=== PATIENT | female | born 1955 ===

== ENCOUNTER 2018-11-16 04:08 | Emergency (ER) | payer MEDICARE, MEDICAID ==
[2018-11-16 04:09] VITALS: BMI 38.2
--- NOTE | 2018-11-16 04:13 | C.PDOC ---
History Of Present Illness Patient presents to the ER with a complaint of fever, chills, nausea since 2199 that has worsened. She is currently speaking in complete sentences and able to tolerate PO. Denies chest pain or SOB. Time Seen by Provider: 11/16/18 04:12 History Per: Patient History/Exam Limitations: no limitations Onset/Duration Of Symptoms: Hrs Current Symptoms Are (Timing): Worse Severity: Moderate Pain Scale Rating Of: 4 Recent travel outside of the [place]: No Past Medical History Reviewed: Historical Data, Nursing Documentation, Vital Signs - Medical History PMH: Gastritis, HTN Denies: Chronic Kidney Disease Surgical History: Appendectomy, Cholecystectomy - [facility] Procedures LAPAROSCOPIC CHOLECYSTECTOMY (05/30/13) Family History: States: No Known Family Hx - Social History Hx Tobacco Use: No Hx Alcohol Use: No Hx Substance Use: No - Immunization History Hx Tetanus Toxoid Vaccination: No Hx Influenza Vaccination: Yes Hx Pneumococcal Vaccination: No Review Of Systems Constitutional: Positive for: Fever, Chills Cardiovascular: Negative for: Chest Pain, Palpitations Respiratory: Negative for: Cough, Shortness of Breath Gastrointestinal: Positive for: Nausea. Negative for: Vomiting Neurological: Negative for: Weakness, Numbness Physical Exam - Physical Exam Appears: Non-toxic Skin: Warm, Dry Head: Normacephalic Eye(s): bilateral: Normal Inspection Ear(s): Bilateral: Normal Nose: No Discharge Oral Mucosa: Moist Throat: No Erythema, No Exudate Neck: Trachea Midline, Supple Chest: Symmetrical, No Tenderness Cardiovascular: Rhythm Regular Respiratory: No Rales, No Rhonchi, No Wheezing Gastrointestinal/Abdominal: Soft, No Tenderness Back: No CVA Tenderness Neurological/Psych: Oriented x3 ED Course And Treatment - Laboratory Results Result Diagrams: 11/16/18 04:44 11/16/18 04:44 ECG: Interpreted By Nd ECG Rhythm: Sinus Rhythm (124), L BBB, Nonspecific Changes (unchanged from 09/09/15) O2 Sat by Pulse Oximetry: 100 Pulse Ox Interpretation: Normal Progress Note: Blood work, EKG, CXR, urinalysis, and flu swab ordered. IV fluids and tylenol administered. Reevaluation Time: 06:20 Reassessment Condition: Improved Medical Decision Making Medical Decision Making: Upon provider reevaluation patient is feeling better, is medically stable, and requires no further treatment in the ED at this time. Patient will be discharged home with Rx for macrobid . Counseling was provided and all questions were answered regarding diagnosis and need for follow up with the referred clinic. There is agreement to discharge plan. Return if symptoms persist or worsen. Disposition Counseled Patient/Family Regarding: Studies Performed, Diagnosis, Need For Followup, Rx Given - Disposition Referrals: [facility] [Outside] [facility] [Outside] Disposition: HOME/ ROUTINE Disposition Time: 04:12 Condition: FAIR Additional Instructions: Thank you for letting us take care of you today. Your provider was Dr. Ferrara. You were treated for urinary tract infection . The emergency medical care you received today was directed at your acute symptoms. If you were prescribed any medication, please fill it and take as directed. It may take several days for your symptoms to resolve. Return to the Emergency Department if your symptoms worsen, do not improve, or if you have any other problems. Please contact your doctor or call one of the physicians/clinics you have been referred to that are listed on the Patient Visit Information form that is included in your discharge packet. Bring any paperwork you were given at [facility] with you along with any medications you are taking to your follow up visit. Our treatment cannot replace ongoing medical care by a primary care provider (PCP) outside of the emergency department. Prescriptions: Nitrofurantoin Macrocrystals [Macrobid] 1 cap PO BID #14 cap Instructions: Urinary Tract Infection, Adult (DC) - Clinical Impression Clinical Impression: Fever, UTI (urinary tract infection) - Scribe Statement The provider has reviewed the documentation as recorded by the Scribe Jacoby West All medical record entries made by the Scribe were at my direction and personally dictated by me. I have reviewed the chart and agree that the record accurately reflects my personal performance of the history, physical exam, medical decision making, and the department course for this patient. I have also personally directed, reviewed, and agree with the discharge instructions and disposition.
[2018-11-16] MEDS ORDERED: Sodium Chloride 0.9% 1,000 ML IV ONE ×2 (04:21→05:34)
[2018-11-16 04:53] LABS: BASO # 0.1 K/uL (0.0-0.2); BASO % 0.5 % (0.0-2.0); EOS # 0.1 K/uL (0.0-0.7); EOS % 0.5 % (0.0-4.0); HEMOGLOBIN 12.8 g/dL (11.0-16.0); LYMPH # 0.8 K/uL (1.0-4.3); LYMPH % 6.6 % (20.0-40.0); MEAN CELL VOLUME 85.6 fL (81.0-99.0); MEAN CORPUSCULAR HEMOGLOBIN 28.7 pg (27.0-31.0); MEAN CORPUSCULAR HGB CONC 33.6 g/dL (33.0-37.0); MONO # 0.7 K/uL (0.0-0.8); MONO % 5.4 % (0.0-10.0); NEUT # 11.1 K/uL (1.8-7.0); PLATELET COUNT 197 K/uL (130-400); RBC 4.46 Mil/uL (3.80-5.20); RED CELL DISTRIBUTION WIDTH 12.8 % (11.5-14.5); WHITE BLOOD COUNT 12.7 K/uL (4.8-10.8)
[2018-11-16] MEDS ORDERED: Sodium Chloride 0.9% 1,000 ML ONE ×2 (04:53→05:41)
[2018-11-16 04:54] LABS: SQUAMOUS EPITHIAL 1 /hpf (0-5); URINE BACTERIA OCC (<OCC); URINE BILIRUBIN NEGATIVE (NEGATIVE); URINE BLOOD 2+ (NEGATIVE); URINE CLARITY Hazy (Clear); URINE COLOR Yellow (YELLOW); URINE GLUCOSE (UA) NORMAL (Normal); URINE LEUKOCYTE ESTERASE 2+ Leu/uL (Negative); URINE PROTEIN NEGATIVE (NEGATIVE); URINE UROBILINOGEN NORMAL mg/dL (0.2-1.0)
[2018-11-16 04:56] LABS: PROTHROMBIN TIME 11.4 SECONDS (9.7-12.2)
[2018-11-16] MEDS ORDERED: Piperacillin/Tazobact 3.375 gm 100 ML IVPB STA (04:58)
[2018-11-16 05:03] VITALS: RESP 16
[2018-11-16] MEDS ORDERED: Piperacillin/Tazobact 3.375 gm 100 ML IVPB ONE (05:07)
[2018-11-16 05:12] LABS: VENOUS BLOOD GAS BASE EXCESS 3.9 mmol/L (0.0-2.0); VENOUS BLOOD GAS PCO2 38 mmHg (40-60); VENOUS BLOOD GAS PO2 49 mm/Hg (30-55); VENOUS BLOOD PH 7.47 (7.32-7.43)
[2018-11-16 05:46] LABS: ALB/GLOB RATIO 1.6 (1.0-2.1); ALBUMIN 4.7 g/dL (3.5-5.0); ALT/SGPT 32 U/L (9-52); AST/SGOT 34 U/L (14-36); BLOOD UREA NITROGEN 18 mg/dL (7-17); CALCIUM 9.4 mg/dl (8.6-10.4); GFR NON-AFRICAN AMERICAN > 60
[2018-11-16 06:14] VITALS: BP 130/63; PULSE 93; TEMP 99.4
[2018-11-16 06:23] VITALS: O2SAT 100
[2018-11-16 08:05] LABS: EOSINOPHIL 1 % (0-4); LYMPHOCYTE 7 % (20-40); MONOCYTE 6 % (0-10); NEUTROPHIL 86 % (50-75); PLATELET ESTIMATE NORMAL (NORMAL); TOTAL CELLS COUNTED 100
--- NOTE | 2018-11-16 10:22 | RAD ---
HISTORY: SOB COMPARISON: Chest x-ray performed 03/08/15 TECHNIQUE: Chest, one view. FINDINGS: LUNGS: Right hilar prominence. Mild left basilar atelectasis. Hypoinflation. Please note that chest x-ray has limited sensitivity for the detection of pulmonary masses. PLEURA: No significant pleural effusion identified. No definite pneumothorax . CARDIOVASCULAR: Heart size appears top normal. No significant atherosclerotic calcification present. OSSEOUS STRUCTURES: Degenerative changes. VISUALIZED UPPER ABDOMEN: Unremarkable. OTHER FINDINGS: None. IMPRESSION: Right hilar prominence. Mild left basilar atelectasis. Hypoinflation.
--- NOTE | 2018-11-17 10:55 | CARD ---
APPROVED REPORT Date of service: 11/16/2018 EKG Measurement Heart [id number] <Conclusion> Sinus tachycardia Left bundle branch block Abnormal ECG
== END 2018-11-16 07:00 | disposition home or self-care (01) ==
LOC: C.ER 04:08
DX: N39.0 Urinary tract infection, site not specified (principal); R50.9 Fever, unspecified
CPT/HCPCS: 72HRC; 87181

== ENCOUNTER 2018-11-16 22:03 | Inpatient (IN) | payer MEDICARE, MEDICAID ==
[2018-11-16 22:03] VITALS: BMI 38.2
[2018-11-16] MEDS ORDERED: Sodium Chloride 0.9% 1,000 ML IV ONE (22:42)
[2018-11-16] MEDS ORDERED: Ciprofloxacin 400mg/200ml D5W 400 MG/200 ML BAG IVPB STA (22:49)
--- NOTE | 2018-11-16 23:01 | C.PDOC ---
Chief Complaint (Nursing): Female Genitourinary Past Medical History Vital Signs: Last Vital Signs Temp 98.9 F 11/16/18 22:23 Pulse 112 H 11/16/18 22:23 Resp 18 11/16/18 22:23 BP 152/82 H 11/16/18 22:23 Pulse Ox 96 11/16/18 22:23 - Medical History PMH: Gastritis, HTN Denies: Chronic Kidney Disease Surgical History: Appendectomy, Cholecystectomy - [facility] Procedures LAPAROSCOPIC CHOLECYSTECTOMY (05/30/13) Family History: States: Unknown Family Hx - Social History Hx Tobacco Use: No Hx Alcohol Use: No Hx Substance Use: No - Immunization History Hx Tetanus Toxoid Vaccination: No Hx Influenza Vaccination: Yes Hx Pneumococcal Vaccination: No ED Course And Treatment O2 Sat by Pulse Oximetry: 96 Disposition Discussed With DrMiguel: Edouard Rodríguez Jr. Doctor Will See Patient In The: Hospital Counseled Patient/Family Regarding: Diagnosis - Disposition Disposition: HOME/ ROUTINE Disposition Time: 22:59 Condition: STABLE Forms: [employer] [facility] ([place]) - POA Present On Arrival: None - Clinical Impression Clinical Impression: UTI (urinary tract infection), Bacteremia
[2018-11-16 23:04] LABS: SQUAMOUS EPITHIAL 1 /hpf (0-5); URINE BACTERIA OCC (<OCC); URINE BILIRUBIN NEGATIVE (NEGATIVE); URINE CLARITY Clear (Clear); URINE COLOR Straw (YELLOW); URINE GLUCOSE (UA) NORMAL (Normal); URINE PROTEIN NEGATIVE (NEGATIVE); URINE UROBILINOGEN NORMAL mg/dL (0.2-1.0)
[2018-11-16 23:05] LABS: URINE BLOOD TRACE (NEGATIVE); URINE LEUKOCYTE ESTERASE 1+ Leu/uL (Negative)
--- NOTE | 2018-11-16 23:08 | C.PDOC ---
History Of Present Illness 63 year old female was seen last night for not feeling well and fever, she had blood cultures done which were positive for bacteria. Patient reports feeling slightly better since yesterday. Denies pain. Chief Complaint (Nursing): Female Genitourinary History Per: Patient History/Exam Limitations: no limitations Onset/Duration Of Symptoms: Hrs Current Symptoms Are (Timing): Still Present Recent travel outside of the [place]: No Past Medical History Reviewed: Historical Data, Nursing Documentation, Vital Signs Vital Signs: Last Vital Signs Temp 98.9 F 11/16/18 22:23 Pulse 112 H 11/16/18 22:23 Resp 18 11/16/18 22:23 BP 152/82 H 11/16/18 22:23 Pulse Ox 96 11/16/18 22:23 - Medical History PMH: Gastritis, HTN Denies: Chronic Kidney Disease Surgical History: Appendectomy, Cholecystectomy - [facility] Procedures LAPAROSCOPIC CHOLECYSTECTOMY (05/30/13) Family History: States: Unknown Family Hx - Social History Hx Tobacco Use: No Hx Alcohol Use: No Hx Substance Use: No - Immunization History Hx Tetanus Toxoid Vaccination: No Hx Influenza Vaccination: Yes Hx Pneumococcal Vaccination: No Review Of Systems Constitutional: Negative for: Fever, Chills Cardiovascular: Negative for: Chest Pain, Palpitations Respiratory: Negative for: Cough, Shortness of Breath Gastrointestinal: Negative for: Nausea, Vomiting Neurological: Negative for: Weakness, Numbness Physical Exam - Physical Exam Appears: Non-toxic Skin: Normal Color, Warm, Dry Head: Atraumatic, Normacephalic Eye(s): bilateral: Normal Inspection Oral Mucosa: Moist Neck: Normal, Supple Chest: Symmetrical, No Tenderness Cardiovascular: Rhythm Regular Respiratory: Normal Breath Sounds, No Rales, No Rhonchi, No Wheezing Gastrointestinal/Abdominal: Soft, No Tenderness Back: No CVA Tenderness Neurological/Psych: Oriented x3, Normal Speech ED Course And Treatment - Laboratory Results Result Diagrams: 11/16/18 23:34 11/16/18 23:34 O2 Sat by Pulse Oximetry: 96 (Room air) Pulse Ox Interpretation: Normal Progress Note: Blood work and urinalysis ordered. Cipro and IV fluids administered. Disposition Discussed With DrMiguel: Edouard Rodríguez Jr. - Disposition Disposition: HOME/ ROUTINE Disposition Time: 22:50 Condition: STABLE - Clinical Impression Clinical Impression: UTI (urinary tract infection), Bacteremia - Scribe Statement The provider has reviewed the documentation as recorded by the Scribe Jacoby West All medical record entries made by the Scribe were at my direction and personally dictated by me. I have reviewed the chart and agree that the record accurately reflects my personal performance of the history, physical exam, medical decision making, and the department course for this patient. I have also personally directed, reviewed, and agree with the discharge instructions and disposition.
[2018-11-16] MEDS ORDERED: Ciprofloxacin 400mg/200ml D5W 400 MG/200 ML BAG IVPB ONE (23:20)
[2018-11-16] MEDS ORDERED: Sodium Chloride 0.9% 1,000 ML ONE (23:20)
[2018-11-16 23:39] LABS: BASO % 0.6 % (0.0-2.0); EOS % 0.3 % (0.0-4.0); HEMOGLOBIN 12.5 g/dL (11.0-16.0); LYMPH % 15.4 % (20.0-40.0); MEAN CELL VOLUME 86.8 fL (81.0-99.0); MEAN CORPUSCULAR HEMOGLOBIN 29.4 pg (27.0-31.0); MEAN CORPUSCULAR HGB CONC 33.8 g/dL (33.0-37.0); MEAN PLATELET VOLUME 9.1 fL (7.2-11.7); MONO # 0.5 K/uL (0.0-0.8); MONO % 7.1 % (0.0-10.0); NEUT # 5.1 K/uL (1.8-7.0); NEUT % 76.6 % (50.0-75.0); NRBC % 0.1 % (0.0-2.0); RBC 4.26 Mil/uL (3.80-5.20); RED CELL DISTRIBUTION WIDTH 13.4 % (11.5-14.5); WHITE BLOOD COUNT 6.6 K/uL (4.8-10.8)
[2018-11-16 23:57] LABS: ALB/GLOB RATIO 1.5 (1.0-2.1); ALBUMIN 4.2 g/dL (3.5-5.0); ALT/SGPT 57 U/L (9-52); AST/SGOT 63 U/L (14-36); BLOOD UREA NITROGEN 14 mg/dL (7-17); CALCIUM 9.2 mg/dl (8.6-10.4); GFR NON-AFRICAN AMERICAN > 60
--- NOTE | 2018-11-16 23:58 | CP.PCM.HP ---
History of Present Illness - History of Present Illness History of Present Illness: History and physical for Dr. Rodríguez's service CC "left flank pain, chills" HPI: Patient is a 63 year old female with history of hypertension, GERD, sleep apnea who initially presented earlier today for complaints of chills, and inter mittent left flank pain rated 7/10 that started suddenly at 11:30pm last night. She states her symptoms of chills and left flank pain woke her up from her sleep. She continued to have persistent discomfort until 3am this morning, when patient came in to the ED. She admits she has had 3 day history of dark urine however denies any pain or burning with urination. She states she has had urinary infections before, but she has never experienced these symptoms with a UTI before. She also states she experienced a headache rated 10/10 when her symptoms started, currently states her headache is a 7/10. While she was in the ED yesterday, she states her left flank pain improved with IV fluids and pain medication. She was prescribed Macrobid, which she took this morning. She states she was called back by the ED to return after blood culture revealed Gram negative rods. She states she experienced intermittent room spinning sensation, was recently diagnosed with vertigo and takes Meclizine intermittently. She states her vertiginous symptoms are worse with abrupt movements. She denies chest pain, shortness of breath, palpitations, abdominal pain, nausea, vomiting, diarrhea, black or bloody stools, leg pain or swelling. PMH: HTN, GERD, vertigo, sleep apnea (CPAP machine broke 1 month ago), hearing impairment on left (hearing aid) PSH: appendectomy, C section, cholecystectomy Family hx: Mother and father of [place], brother has kidney disease - had renal transplant in his 60s. Social hx: Doesn't work currently. denies smoking, drug use. Social ETOH use. Home meds: Losartan 100mg PO daily, Nexium PRN, Meclizine PRN Allergies: NKDA HCP: Partner Rashid Hair [phone] Present on Admission - Present on Admission Any Indicators Present on Admission: No Review of Systems - Constitutional Constitutional: Chills, Headache - EENT Eyes: absent: Change in Vision Ears: Decreased Hearing (on left uses hearing aid), Tinnitus, Dizziness (hx of vertigo) Nose/Mouth/Throat: absent: Nasal Congestion, Sinus Pain, Sinus Pressure, Sore Throat, Neck Pain - Cardiovascular Cardiovascular: absent: Chest Pain, Dyspnea, Leg Edema, Palpitations, Syncope - Respiratory Respiratory: absent: Cough, Dyspnea, Chest Congestion - Gastrointestinal Gastrointestinal: absent: Abdominal Pain, Diarrhea, Nausea, Vomiting - Genitourinary Genitourinary: absent: Dysuria, Urinary Incontinence Additional comments: dark urine - Musculoskeletal Musculoskeletal: Back Pain (left flank pain) - Neurological Neurological: Headaches, Vertigo - Psychiatric Psychiatric: absent: Anxiety, Depression Past Patient History - Past Medical History & Family History Past Medical History?: Yes - Past Social History Smoking Status: Never Smoked - CARDIAC Hx Hypertension: Yes - PULMONARY Hx Respiratory Disorders: No - NEUROLOGICAL Hx Neurological Disorder: No - HEENT Hx HEENT Problems: No - RENAL Hx Chronic Kidney Disease: No - ENDOCRINE/METABOLIC Hx Endocrine Disorders: No - HEMATOLOGICAL/ONCOLOGICAL Hx Blood Disorders: No - INTEGUMENTARY Hx Dermatological Problems: No - MUSCULOSKELETAL/RHEUMATOLOGICAL Hx Musculoskeletal Disorders: No - GASTROINTESTINAL Hx Gastritis: Yes - GENITOURINARY/GYNECOLOGICAL Hx Genitourinary Disorders: No - PSYCHIATRIC Hx Substance Use: No - SURGICAL HISTORY Hx Appendectomy: Yes Hx Cholecystectomy: Yes - ANESTHESIA Hx Anesthesia: Yes Hx Anesthesia Reactions: No Hx Malignant Hyperthermia: No Meds Allergies/Adverse Reactions: Allergies Allergy/AdvReac Type Severity Reaction Status Date / Time No Known Allergies Allergy Verified 11/16/18 22:27 Physical Exam - Constitutional Appears: Well, Non-toxic, No Acute Distress Additional comments: Appears slightly anxious - Head Exam Head Exam: ATRAUMATIC, NORMOCEPHALIC - Eye Exam Eye Exam: EOMI, PERRL. absent: Conjunctival injection, Periorbital swelling - ENT Exam ENT Exam: Mucous Membranes Moist Additional comments: hearing aid in left ear. - Neck Exam Neck exam: Positive for: Full Rom. Negative for: Tenderness - Respiratory Exam Respiratory Exam: Clear to Auscultation Bilateral, NORMAL BREATHING PATTERN. absent: Rales, Rhonchi, Wheezes, Respiratory Distress, Stridor - Cardiovascular Exam Cardiovascular Exam: REGULAR RHYTHM, +S1, +S2. absent: Gallop, Rubs, Systolic Murmur - GI/Abdominal Exam GI & Abdominal Exam: Normal Bowel Sounds, Soft. absent: Distended, Firm, Guarding, Tenderness - Extremities Exam Extremities exam: Positive for: normal capillary refill, pedal pulses present. Negative for: calf tenderness, pedal edema - Back Exam Back exam: CVA tenderness (L). absent: rash noted, vertebral tenderness - Neurological Exam Neurological exam: Alert, CN II-XII Intact, Oriented x3 - Psychiatric Exam Psychiatric exam: Normal Affect, Normal Mood - Skin Skin Exam: Dry, Intact, Warm Results - Vital Signs Recent Vital Signs: Last Vital Signs Temp 98.9 F 11/16/18 22:23 Pulse 112 H 11/16/18 22:23 Resp 18 11/16/18 22:23 BP 152/82 H 11/16/18 22:23 Pulse Ox 96 11/16/18 23:09 - Labs Result Diagrams: 11/16/18 23:34 11/16/18 23:34 Labs: Laboratory Results - last 24 hr 11/16/18 11/16/18 22:59 23:34 WBC 6.6 RBC 4.26 Hgb 12.5 Hct 37.0 MCV 86.8 MCH 29.4 MCHC 33.8 RDW 13.4 Plt Count 187 MPV 9.1 Neut % (Auto) 76.6 H Lymph % (Auto) 15.4 L [place] % (Auto) 7.1 Eos % (Auto) 0.3 Baso % (Auto) 0.6 Neut # (Auto) 5.1 Lymph # (Auto) 1.0 [place] # (Auto) 0.5 Eos # (Auto) 0.0 Baso # (Auto) 0.0 Urine Color Straw Urine Clarity Clear Urine pH 7.0 Ur Specific [place] 1.003 Urine Protein Negative Urine Glucose (UA) Normal Urine Ketones Negative Urine Blood Trace H Urine Nitrate Negative Urine Bilirubin Negative Urine Urobilinogen Normal Ur Leukocyte Esterase 1+ H Urine WBC (Auto) 7 H Urine RBC (Auto) 5 H Ur Squamous Epith Cells 1 Urine Bacteria Occ H Assessment & Plan - Assessment and Plan (Free Text) Assessment: 63 year old female with history of HTN, sleep apnea, GERD who presents for bacteremia with GN rods and UTI. Plan: Bacteremia, likely secondary to UTI Blood cultures: GN rods in blood, pending final results UA Initial: 2+ LE, 2+ blood, WBC 58 RBC 25 Repeat: 1+ LE, trace blood, WBC 7, 5 F/u Urine culture Currently afebrile In ED, patient received Cipro 400mg IV, NS IV fluids, Tylenol 650 Patient took Macrobid x1 at home Cipro 400mg IV Q12 NS IV fluids @ 100cc/hr IV Hx of HTN Patient took Losartan today Losartan 100mg PO daily Continue to monitor Hx of GERD Protonix 40mg PO History of sleep apnea Patient has not been using CPAP for 1 month Continue to monitor O2 sat Will need script for CPAP machine on discharge PPX: DVT: Lovenox, SCDs GI: Protonix Heart healthy diet, 2g Na Case discussed with Dr. Anne Kaye, PGY1
[2018-11-17 00:14] VITALS: RESP 20
[2018-11-17] MEDS ORDERED: Sodium Chloride 0.9% 1,000 ML IV ONE (00:21)
[2018-11-17 07:30] LABS: BASO % 0.9 % (0.0-2.0); HEMOGLOBIN 12.3 g/dL (11.0-16.0); LYMPH # 0.9 K/uL (1.0-4.3); LYMPH % 18.5 % (20.0-40.0); MEAN CORPUSCULAR HEMOGLOBIN 29.6 pg (27.0-31.0); MEAN PLATELET VOLUME 8.7 fL (7.2-11.7); MONO # 0.5 K/uL (0.0-0.8); MONO % 9.2 % (0.0-10.0); NEUT # 3.5 K/uL (1.8-7.0); NEUT % 70.4 % (50.0-75.0); NRBC % 0.1 % (0.0-2.0); RBC 4.15 Mil/uL (3.80-5.20); RED CELL DISTRIBUTION WIDTH 13.1 % (11.5-14.5)
[2018-11-17 07:48] LABS: ALB/GLOB RATIO 1.3 (1.0-2.1); ALBUMIN 3.8 g/dL (3.5-5.0); ALT/SGPT 50 U/L (9-52); AST/SGOT 44 U/L (14-36); BLOOD UREA NITROGEN 13 mg/dL (7-17); CALCIUM 8.7 mg/dl (8.6-10.4); GFR NON-AFRICAN AMERICAN > 60
[2018-11-17] MEDS ORDERED: Ciprofloxacin 400mg/200ml D5W 400 MG/200 ML BAG IVPB SCH (10:00)
--- NOTE | 2018-11-17 10:00 | CP.PCM.PN ---
<WillemtIa - Last Filed: 11/17/18 11:06> Subjective - Date & Time of Evaluation Date of Evaluation: 11/17/18 Time of Evaluation: 09:53 - Subjective Subjective: Marymargaretmaame Ascenciopaulo PGY1 Progress Note for Dr. Rodríguez Pt was examined at bedside this morning. She reports improvement in her abdominal pain and denies any further episodes of dark urine. She denies shortness of breath, chest pain, vomiting, nausea, diarrhea, dysuria. Objective - Vital Signs/Intake and Output Vital Signs (last 24 hours): Temp Pulse Resp BP Pulse Ox 98.9 F 91 H 20 135/79 95 11/17/18 07:00 11/17/18 07:00 11/17/18 07:00 11/17/18 07:00 11/17/18 07:00 Intake and Output: 11/17/18 11/17/18 06:59 18:59 Intake Total 940 Balance 940 - Medications Medications: Current Medications Enoxaparin Sodium (Lovenox) 40 mg SC DAILY [facility] Ciprofloxacin (Cipro 400mg/200ml Dsw) 400 mg in 200 mls @ 133 mls/hr IVPB Q12H [facility]; Protocol Sodium Chloride (Sodium Chloride 0.9%) 1,000 mls @ 100 mls/hr IV .Q10H ONE Stop: 11/17/18 10:20 Last Admin: 11/17/18 01:02 Dose: Not Given Pantoprazole Sodium (Protonix Ec Tab) 40 mg PO DAILY [facility] Pneumococcal Polyvalent Vaccine (Pneumovax 23 Vaccine) 0.5 ml IM .ONCE ONE Stop: 11/18/18 10:01 - Labs Labs: 11/17/18 07:17 11/17/18 07:17 - Constitutional Appears: Well, No Acute Distress - Head Exam Head Exam: ATRAUMATIC, NORMOCEPHALIC - Eye Exam Eye Exam: EOMI, Normal appearance, PERRL Pupil Exam: NORMAL ACCOMODATION - ENT Exam ENT Exam: Mucous Membranes Moist - Respiratory Exam Respiratory Exam: Clear to Ausculation Bilateral, NORMAL BREATHING PATTERN. absent: Rales, Rhonchi, Wheezes - Cardiovascular Exam Cardiovascular Exam: REGULAR RHYTHM, +S1, +S2. absent: Gallop, Rubs, Murmur - GI/Abdominal Exam GI & Abdominal Exam: Soft, Normal Bowel Sounds. absent: Distended, Tenderness Additional comments: no suprapubic tenderness - Extremities Exam Extremities Exam: Normal Inspection. absent: Pedal Edema - Back Exam Back Exam: NORMAL INSPECTION - Neurological Exam Neurological Exam: Alert, Awake, Oriented x3 - Psychiatric Exam Psychiatric exam: Normal Affect, Normal Mood - Skin Skin Exam: Normal Color Assessment and Plan - Assessment and Plan (Free Text) Assessment: 63 year old female with history of HTN, sleep apnea, GERD who presents for positive blood culture with GN rods and UTI, admitted for bacteremia. Currently afebrile, no leukocytosis. Plan: Bacteremia, likely secondary to UTI - Blood cultures: GN rods - UA: 1+ LE, trace blood, WBC 7, 5 - F/u Urine culture - pt afebrile, no leukocytosis - Zosyn 3.375g IVPB q6h - NS IV fluids @ 100cc/hr IV Hx of HTN - Losartan 100mg PO daily Hx of GERD - Protonix 40mg PO Hx of sleep apnea - Patient has not been using CPAP for 1 month - Continue to monitor O2 sat - Will need rx for CPAP machine upon d/c PPX: DVT: Lovenox, SCDs GI: Protonix Heart healthy diet, 2g Na Case discussed with Dr. Rodríguez <Edouard Rodríguez Jr. - Last Filed: 11/21/18 15:31> Objective - Vital Signs/Intake and Output Vital Signs (last 24 hours): Temp Pulse Resp BP Pulse Ox 98.0 F 68 20 122/73 97 11/19/18 07:25 11/19/18 07:25 11/19/18 07:25 11/19/18 07:25 11/19/18 07:25 - Labs Labs: 11/19/18 06:59 11/19/18 06:59 Attending/Attestation - Attestation I have personally seen and examined this patient.: Yes I have fully participated in the care of the patient.: Yes I have reviewed all pertinent clinical information, including history, physical exam and plan: Yes Notes (Text): 11/21/18 15:31 reviewed resident note, agree with findings and plan of care.
[2018-11-17] MEDS: Enoxaparin 40 mg Syringe SC SCH (10:26)
[2018-11-17] MEDS: Pantoprazole 40 mg EC Tab PO SCH (10:26)
[2018-11-17] MEDS: Piperacill/Tazo 3.375gm in Dex 3.375 GM/50 ML BAG IVPB SCH ×3 (12:52→23:49)
[2018-11-18 02:08] VITALS: O2SAT 97
[2018-11-18] MEDS: Piperacill/Tazo 3.375gm in Dex 3.375 GM/50 ML BAG IVPB SCH ×3 (05:45→17:15)
[2018-11-18 07:22] LABS: BASO # 0.1 K/uL (0.0-0.2); BASO % 1.6 % (0.0-2.0); EOS # 0.2 K/uL (0.0-0.7); HEMOGLOBIN 11.9 g/dL (11.0-16.0); LYMPH # 1.5 K/uL (1.0-4.3); LYMPH % 30.6 % (20.0-40.0); MEAN CELL VOLUME 86.2 fL (81.0-99.0); MEAN CORPUSCULAR HEMOGLOBIN 29.8 pg (27.0-31.0); MEAN CORPUSCULAR HGB CONC 34.5 g/dL (33.0-37.0); MEAN PLATELET VOLUME 8.4 fL (7.2-11.7); MONO # 0.7 K/uL (0.0-0.8); MONO % 14.2 % (0.0-10.0); NEUT # 2.3 K/uL (1.8-7.0); NEUT % 48.6 % (50.0-75.0); RBC 3.99 Mil/uL (3.80-5.20); RED CELL DISTRIBUTION WIDTH 13.3 % (11.5-14.5); WHITE BLOOD COUNT 4.8 K/uL (4.8-10.8)
[2018-11-18 08:15] LABS: ALB/GLOB RATIO 1.4 (1.0-2.1); ALBUMIN 3.8 g/dL (3.5-5.0); ALT/SGPT 55 U/L (9-52); AST/SGOT 44 U/L (14-36); BLOOD UREA NITROGEN 11 mg/dL (7-17); CALCIUM 8.8 mg/dl (8.6-10.4); GFR NON-AFRICAN AMERICAN > 60
[2018-11-18] MEDS ORDERED: Pneumococcal 23-Valent Vaccine IM ONE (10:00)
[2018-11-18] MEDS: Enoxaparin 40 mg Syringe SC SCH (10:51)
[2018-11-18] MEDS: Pantoprazole 40 mg EC Tab PO SCH (10:51)
--- NOTE | 2018-11-18 11:12 | CP.PCM.PN ---
<WillemMarymargaretmaame - Last Filed: 11/18/18 11:16> Subjective - Date & Time of Evaluation Date of Evaluation: 11/18/18 Time of Evaluation: 11:08 - Subjective Subjective: Ita Bangura PGY1 Progress Note for Dr. Rodríguez Pt was examined at bedside this morning. She reports resolved abdominal pain and nausea. She complains of mild headache. She denies dysuria. She denies dizziness, chest pain, abdominal pain, vomiting, shortness of breath, diarrhea. Objective - Vital Signs/Intake and Output Vital Signs (last 24 hours): Temp Pulse Resp BP Pulse Ox 98.7 F 80 20 130/71 97 11/18/18 07:47 11/18/18 07:47 11/18/18 07:47 11/18/18 07:47 11/18/18 07:47 Intake and Output: 11/18/18 11/18/18 06:59 18:59 Intake Total 720 Balance 720 - Medications Medications: Current Medications Acetaminophen (Tylenol 325mg Tab) 650 mg PO Q6 PRN PRN Reason: Pain, moderate (4-7) Last Admin: 11/18/18 06:48 Dose: 650 mg Amlodipine Besylate (Norvasc) 5 mg PO DAILY [facility] Last Admin: 11/18/18 10:51 Dose: 5 mg Enoxaparin Sodium (Lovenox) 40 mg SC DAILY [facility] Last Admin: 11/18/18 10:51 Dose: 40 mg Piperacillin Sod/Tazobactam Sod (Zosyn 3.375 Gm Iv Premix) 3.375 gm in 50 mls @ 200 mls/hr IVPB Q6H [facility]; Protocol Last Admin: 11/18/18 05:45 Dose: 200 mls/hr Pantoprazole Sodium (Protonix Ec Tab) 40 mg PO DAILY [facility] Last Admin: 11/18/18 10:51 Dose: 40 mg - Labs Labs: 11/18/18 07:14 11/18/18 07:14 - Additional Findings Additional findings: - Head Exam Head Exam: ATRAUMATIC, NORMOCEPHALIC - Eye Exam Eye Exam: EOMI, Normal appearance, PERRL Pupil Exam: NORMAL ACCOMODATION - ENT Exam ENT Exam: Mucous Membranes Moist - Respiratory Exam Respiratory Exam: Clear to Ausculation Bilateral, NORMAL BREATHING PATTERN. absent: Rales, Rhonchi, Wheezes - Cardiovascular Exam Cardiovascular Exam: REGULAR RHYTHM, +S1, +S2. absent: Gallop, Rubs, Murmur - GI/Abdominal Exam GI & Abdominal Exam: Soft, Normal Bowel Sounds. absent: Distended, Tenderness Additional comments: no suprapubic tenderness - Extremities Exam Extremities Exam: Normal Inspection. absent: Pedal Edema - Back Exam Back Exam: NORMAL INSPECTION - Neurological Exam Neurological Exam: Alert, Awake, Oriented x3 - Psychiatric Exam Psychiatric exam: Normal Affect, Normal Mood - Skin Skin Exam: Normal Color Assessment and Plan - Assessment and Plan (Free Text) Assessment: 63 year old female with history of HTN, sleep apnea, GERD who presents for positive blood culture with GN rods and UTI, admitted for bacteremia. Currently afebrile, no leukocytosis. Plan: Bacteremia, likely secondary to UTI - Blood cultures: GN rods - UA: 1+ LE, trace blood, WBC 7, 5 - F/u Urine culture - pt afebrile, no leukocytosis - Zosyn 3.375g IVPB q6h - NS IV fluids @ 100cc/hr IV Hx of HTN - amlodipine 5mg PO daily Hx of GERD - Protonix 40mg PO Hx of sleep apnea - Patient has not been using CPAP for 1 month - Continue to monitor O2 sat - Will need rx for CPAP machine upon d/c PPX: DVT: Lovenox, SCDs GI: Protonix Heart healthy diet, 2g Na Dispo: for D/C tomorrow Case discussed with Dr. Rodríguez <Edouard Rodríguez Jr. - Last Filed: 11/21/18 15:29> Objective - Vital Signs/Intake and Output Vital Signs (last 24 hours): Temp Pulse Resp BP Pulse Ox 98.0 F 68 20 122/73 97 11/19/18 07:25 11/19/18 07:25 11/19/18 07:25 11/19/18 07:25 11/19/18 07:25 - Labs Labs: 11/19/18 06:59 11/19/18 06:59 Attending/Attestation - Attestation I have personally seen and examined this patient.: Yes I have fully participated in the care of the patient.: Yes I have reviewed all pertinent clinical information, including history, physical exam and plan: Yes Notes (Text): 11/21/18 15:29 reviewed resident note, agree with findings and plan of care.
[2018-11-19] MEDS: Piperacill/Tazo 3.375gm in Dex 3.375 GM/50 ML BAG IVPB SCH ×3 (00:28→11:39)
[2018-11-19 07:13] LABS: BASO % 0.9 % (0.0-2.0); EOS # 0.3 K/uL (0.0-0.7); EOS % 5.6 % (0.0-4.0); HEMOGLOBIN 11.8 g/dL (11.0-16.0); LYMPH # 1.7 K/uL (1.0-4.3); LYMPH % 35.1 % (20.0-40.0); MEAN CELL VOLUME 86.1 fL (81.0-99.0); MEAN CORPUSCULAR HEMOGLOBIN 29.3 pg (27.0-31.0); MEAN CORPUSCULAR HGB CONC 34.1 g/dL (33.0-37.0); MEAN PLATELET VOLUME 8.5 fL (7.2-11.7); MONO # 0.7 K/uL (0.0-0.8); MONO % 14.5 % (0.0-10.0); NEUT # 2.2 K/uL (1.8-7.0); NEUT % 43.9 % (50.0-75.0); NRBC % 0.1 % (0.0-2.0); RBC 4.03 Mil/uL (3.80-5.20); RED CELL DISTRIBUTION WIDTH 13.2 % (11.5-14.5); WHITE BLOOD COUNT 4.9 K/uL (4.8-10.8)
[2018-11-19 07:27] VITALS: BP 122/73; PULSE 68; TEMP 98
[2018-11-19 07:38] LABS: ALB/GLOB RATIO 1.4 (1.0-2.1); ALBUMIN 3.7 g/dL (3.5-5.0); ALT/SGPT 55 U/L (9-52); AST/SGOT 41 U/L (14-36); BLOOD UREA NITROGEN 17 mg/dL (7-17); CALCIUM 8.9 mg/dl (8.6-10.4); GFR NON-AFRICAN AMERICAN > 60
--- NOTE | 2018-11-19 08:11 | CP.PCM.DIS ---
Provider - Provider Date of Admission: 11/16/18 22:56 Attending physician: Edouard Rodríguez Jr, MD Time Spent in preparation of Discharge (in minutes): 40 Hospital Course - Lab Results Lab Results: Micro Results 11/16/18 22:59 Urine Urine Culture - Final No Growth (<1,000 CFU/ML) Most Recent Lab Values WBC 4.9 K/uL (4.8-10.8) 11/19/18 06:59 RBC 4.03 Mil/uL (3.80-5.20) 11/19/18 06:59 Hgb 11.8 g/dL (11.0-16.0) 11/19/18 06:59 Hct 34.7 % (34.0-47.0) 11/19/18 06:59 MCV 86.1 fL (81.0-99.0) 12 06:59 MCH 29.3 pg (27.0-31.0) 11/19/18 06:59 MCHC 34.1 g/dL (33.0-37.0) 11/19/18 06:59 RDW 13.2 % (11.5-14.5) 11/19/18 06:59 Plt Count 220 K/uL (130-400) 11/19/18 06:59 MPV 8.5 fL (7.2-11.7) 11/19/18 06:59 Neut % (Auto) 43.9 % (50.0-75.0) L 11/19/18 06:59 Lymph % (Auto) 35.1 % (20.0-40.0) 11/19/18 06:59 [place] % (Auto) 14.5 % (0.0-10.0) H 11/19/18 06:59 Eos % (Auto) 5.6 % (0.0-4.0) H 11/19/18 06:59 Baso % (Auto) 0.9 % (0.0-2.0) 11/19/18 06:59 Neut # (Auto) 2.2 K/uL (1.8-7.0) 11/19/18 06:59 Lymph # (Auto) 1.7 K/uL (1.0-4.3) 11/19/18 06:59 [place] # (Auto) 0.7 K/uL (0.0-0.8) 11/19/18 06:59 Eos # (Auto) 0.3 K/uL (0.0-0.7) 11/19/18 06:59 Baso # (Auto) 0.0 K/uL (0.0-0.2) 11/19/18 06:59 Sodium 139 mmol/L (132-148) 11/19/18 06:59 Potassium 3.9 mmol/L (3.6-5.2) 11/19/18 06:59 Chloride 104 mmol/L (98-107) 11/19/18 06:59 Carbon Dioxide 27 mmol/L (22-30) 11/19/18 06:59 Anion Gap 12 (10-20) 11/19/18 06:59 BUN 17 mg/dL (7-17) 11/19/18 06:59 Creatinine 0.8 mg/dL (0.7-1.2) 11/19/18 06:59 Est GFR ( Amer) > 60 11/19/18 06:59 Est GFR (Non-Af Amer) > 60 11/19/18 06:59 POC Glucose (mg/dL) 94 mg/dL (65-110) 11/19/18 07:11 Random Glucose 99 mg/dL (65-105) 11/19/18 06:59 Calcium 8.9 mg/dl (8.6-10.4) 11/19/18 06:59 Phosphorus 5.1 mg/dL (2.5-4.5) H 11/19/18 06:59 Magnesium 2.1 mg/dL (1.6-2.3) 11/19/18 06:59 Total Bilirubin 0.4 mg/dL (0.2-1.3) 11/19/18 06:59 AST 41 U/L (14-36) H 11/19/18 06:59 ALT 55 U/L (9-52) H 11/19/18 06:59 Alkaline Phosphatase 122 U/L (38-126) 11/19/18 06:59 Total Protein 6.5 g/dL (6.3-8.3) 11/19/18 06:59 Albumin 3.7 g/dL (3.5-5.0) 11/19/18 06:59 Globulin 2.7 gm/dL (2.2-3.9) 11/19/18 06:59 Albumin/Globulin Ratio 1.4 (1.0-2.1) 11/19/18 06:59 Urine Color Straw (YELLOW) 11/16/18 22:59 Urine Clarity Clear (Clear) 11/16/18 22:59 Urine pH 7.0 (5.0-8.0) 11/16/18 22:59 Ur Specific [place] 1.003 (1.003-1.030) 11/16/18 22:59 Urine Protein Negative mg/dL (NEGATIVE) 11/16/18 22:59 Urine Glucose (UA) Normal mg/dL (Normal) 11/16/18 22:59 Urine Ketones Negative mg/dL (NEGATIVE) 11/16/18 22:59 Urine Blood Trace (NEGATIVE) H 11/16/18 22:59 Urine Nitrate Negative (NEGATIVE) 11/16/18 22:59 Urine Bilirubin Negative (NEGATIVE) 11/16/18 22:59 Urine Urobilinogen Normal mg/dL (0.2-1.0) 11/16/18 22:59 Ur Leukocyte Esterase 1+ [place]/uL (Negative) H 11/16/18 22:59 Urine WBC (Auto) 7 /hpf (0-5) H 11/16/18 22:59 Urine RBC (Auto) 5 /hpf (0-3) H 11/16/18 22:59 Ur Squamous Epith Cells 1 /hpf (0-5) 11/16/18 22:59 Urine Bacteria Occ (<OCC) H 11/16/18 22:59 - Hospital Course Hospital Course: HPI: Patient is a 63 year old female with history of hypertension, GERD, sleep apnea who initially presented earlier today for complaints of chills, and intermittent left flank pain rated 7/10 that started suddenly at 11:30pm last night. She states her symptoms of chills and left flank pain woke her up from her sleep. She continued to have persistent discomfort until 3am this morning, when patient came in to the ED. She admits she has had 3 day history of dark urine however denies any pain or burning with urination. She states she has had urinary infections before, but she has never experienced these symptoms with a UTI before. She also states she experienced a headache rated 10/10 when her symptoms started, currently states her headache is a 7/10. While she was in the ED yesterday, she states her left flank pain improved with IV fluids and pain medication. She was prescribed Macrobid, which she took this morning. She states she was called back by the ED to return after blood culture revealed Gram negative rods. She states she experienced intermittent room spinning sensation, was recently diagnosed with vertigo and takes Meclizine intermittently. She states her vertiginous symptoms are worse with abrupt movements. She denies chest pain, shortness of breath, palpitations, abdominal pain, nausea, vomiting, diarrhea, black or bloody stools, leg pain or swelling. During hospital course: Blood culture x1 grew E. Coli positive. Urinalysis demonstrated leukocyte esterase, trace blood, wbc 7. Urine culture demonstrated no growth. Patient was given IV fluids, zosyn, and monitored. She remained afebrile, no leukocytosis during course of admission. Home medications for hypertension and history of GERD were restarted. Patient is medically stable for discharge to home, as per Dr. Rodríguez. Patient is instructed to follow up with her primary care provider (Dr. Rodríguez) within 1 week of discharge for repeat blood culture follow-up. Script has been given for Ciprofloxacin, to take as indicated, for a total of 7 days. Please return to the ED immediately if symptoms worsen. Thank you. - Date & Time of H&P Date of H&P: 11/19/18 Time of H&P: 13:35 Discharge Exam - Head Exam Head Exam: ATRAUMATIC, NORMOCEPHALIC - Eye Exam Eye Exam: EOMI, Normal appearance, PERRL Pupil Exam: NORMAL ACCOMODATION - ENT Exam ENT Exam: Mucous Membranes Moist, Normal Exam - Neck Exam Neck exam: Full Rom, Normal Inspection - Respiratory Exam Respiratory Exam: Clear to PA & Lateral, NORMAL BREATHING PATTERN, UNREMARKABLE. absent: Accessory Muscle Use, Rales, Rhonchi, Wheezes, Respiratory Distress, Stridor - Cardiovascular Exam Cardiovascular Exam: REGULAR RHYTHM, +S1, +S2 - GI/Abdominal Exam GI & Abdominal Exam: Normal Bowel Sounds, Soft, Unremarkable. absent: Distended, Firm, Guarding, Organomegaly, Rebound, Rigid, Tenderness - Extremities Exam Extremities exam: full ROM, normal capillary refill, normal inspection, pedal pulses present - Neurological Exam Neurological exam: Alert, Oriented x3 - Psychiatric Exam Psychiatric exam: Normal Affect, Normal Mood - Skin Skin Exam: Dry, Intact, Normal Color, Warm Discharge Plan - Follow Up Plan Condition: STABLE Disposition: HOME/ ROUTINE
[2018-11-19] MEDS: Enoxaparin 40 mg Syringe SC SCH (09:22)
[2018-11-19] MEDS: Pantoprazole 40 mg EC Tab PO SCH (09:22)
== END 2018-11-19 15:00 | disposition home or self-care (01) | DRG 690 ==
LOC: C.ER 22:03 → C.6T 22:56 → C.3T 23:57
PROVIDERS: ADMIT Internal Medicine; ATTEND Internal Medicine
DX: N39.0 Urinary tract infection, site not specified (principal); R78.81 Bacteremia; I10 Essential (primary) hypertension; K21.9 Gastro-esophageal reflux disease without esophagitis; Z82.49 Family history of ischemic heart disease and other diseases of the circulatory system; Z90.49 Acquired absence of other specified parts of digestive tract; H91.92 Unspecified hearing loss, left ear; G47.30 Sleep apnea, unspecified

== ENCOUNTER 2018-12-23 13:00 | Outpatient (CLI) | payer MEDICARE, MEDICAID | END 2018-12-23 13:01 | disposition home or self-care (01) | LOC: C.USIC 13:00 | DX: N85.9 Noninflammatory disorder of uterus, unspecified (principal) ==